=== PATIENT | male | born 1965 | race Hispanic/Latino ===

== ENCOUNTER 2019-02-08 01:10 | Emergency (ER) | payer OTHER ==
[2019-02-08 01:41] LABS: Anion Gap 18 mmol/L (10-20); BUN (Urea Nitrogen) 16 mg/dL (8.4-25.7); Calc. Creatinine Clearance 0 mL/min (70-130); Calcium 9.2 mg/dL (7.8-10.44); Carbon Dioxide 29 mmol/L (22-29); Chloride 95 mmol/L (98-107); Estimated GFR-MDRD 62; Glucose 97 mg/dL (70-105); Sodium 139 mmol/L (136-145)
[2019-02-08 01:51] LABS: Potassium 2.6 mmol/L (3.5-5.1)
[2019-02-08] MEDS ORDERED: Potassium Chloride 20 MEQ TAB ONE (01:53)
== END 2019-02-08 02:04 ==
LOC: NAV ERS 01:10
DX: E87.6 Hypokalemia (principal); I10 Essential (primary) hypertension; Z79.899 Other long term (current) drug therapy
CPT/HCPCS: 80048; 93005